=== PATIENT | male | born 1975 | race Caucasian/White ===

== ENCOUNTER 2023-05-09 19:48 | Emergency (ER) | payer SELFPAY ==
[~2023-05-09] VITALS: Ht 182.9 cm; Wt 75.0 kg
[2023-05-09 20:08] VITALS: BP 147/80; PULSE 82; RESP 16; O2SAT 98
[2023-05-09] MEDS ORDERED: ONDANSETRON ODT 4 MG TAB PO ONE (20:45)
[2023-05-09] MEDS ORDERED: HYDROcodone-ACET 10/325MG TAB PO ONE (20:45)
[2023-05-09 21:39] LABS: Basophils # (auto) 0 10 ^3/uL (0-0.2); Basophils % (auto) 0.5 % (0.0-2.0); Eosinophils # (auto) 0 10 ^3/uL (0-0.8); Eosinophils % (auto) 0.9 % (0.0-7.0); Hemoglobin 12.4 g/dL (13.5-17.5); Lymphocytes # (auto) 0.9 10 ^3/uL (0.4-5.4); Lymphocytes % (auto) 18.1 % (10.0-50.0); Mean Corpuscular Hemoglobin 29.4 pg (28.0-32.0); Mean Corpuscular Hgb Conc. 33.4 g/dL (32.0-36.0); Monocytes # (auto) 0.3 10 ^3/uL (0-1.3); Neutrophils # (auto) 3.6 10 ^3/uL (1.6-8.6); Neutrophils % (auto) 73.5 % (37.0-80.0); Nucleated Red Blood Cells % 0.2 %; Red Blood Cells 4.21 10^6/uL (4.5-5.90); Red Cell Distribution Width 14.2 % (11.8-14.3)
[2023-05-09 21:44] LABS: Alanine Aminotransferase 36 U/L (7-40); Albumin 3.9 g/dL (3.2-4.8); Alkaline Phosphatase 104 U/L (46-116); Anion Gap 7 (5-15); Aspartate Aminotransferase 25 U/L (13-40); BUN/Creatinine Ratio 7.6 (10.0-20.0); Blood Urea Nitrogen 6 mg/dL (9-23); Calcium 9.1 mg/dL (8.5-10.1); Carbon Dioxide 29 mmol/L (20-30); Chloride 101 mmol/L (98-107); Glucose 104 mg/dL (74-106); Potassium 3.8 mmol/L (3.5-5.1); Sodium 137 mmol/L (136-145)
[2023-05-09 21:45] LABS: Bilirubin, Total 0.4 mg/dL (0.2-1.0); Total Protein 7.8 g/dL (5.7-8.2)
[2023-05-09] MEDS ORDERED: ACE3T PO (22:27)
[2023-05-09] MEDS ORDERED: CLIN300C70 PO (22:27)
[2023-05-09] MEDS ORDERED: IBUP-1455 PO (22:27)
[2023-05-09] MEDS ORDERED: CLINDAMYCIN HCL 150 MG CAP PO ONE (22:30)
== END 2023-05-10 02:10 | disposition home or self-care (01) ==
LOC: ER 19:48
DX: K04.7 Periapical abscess without sinus (principal); T36.0X5A Adverse effect of penicillins, initial encounter; T36.1X5A Adverse effect of cephalosporins and other beta-lactam antibiotics, initial encounter; R51.9 Headache, unspecified; Y92.89 Other specified places as the place of occurrence of the external cause
CPT/HCPCS: 36415; 70486; 80053; 85025

== ENCOUNTER 2023-05-23 11:04 | Inpatient (IN) | payer MEDICAID, OTHER ==
[~2023-05-23] VITALS: Ht 182.9 cm; Wt 70.0 kg
[~2023-05-23 11:04] MED LIST: ACE3T PO; CLIN300C70 PO; IBUP-1455 PO
[2023-05-23 12:07] LABS: Basophils # (auto) 0 10 ^3/uL (0-0.2); Basophils % (auto) 0.7 % (0.0-2.0); Eosinophils # (auto) 0.1 10 ^3/uL (0-0.8); Eosinophils % (auto) 0.9 % (0.0-7.0); Hematocrit 41.9 % (41.0-53.0); Hemoglobin 13.9 g/dL (13.5-17.5); Lymphocytes # (auto) 0.8 10 ^3/uL (0.4-5.4); Mean Corpuscular Hemoglobin 28.6 pg (28.0-32.0); Mean Corpuscular Hgb Conc. 33.2 g/dL (32.0-36.0); Mean Corpuscular Volume 86.2 fL (80.0-100.0); Monocytes # (auto) 0.2 10 ^3/uL (0-1.3); Monocytes % (auto) 2.8 % (0.0-12.0); Neutrophils # (auto) 5.3 10 ^3/uL (1.6-8.6); Neutrophils % (auto) 82.6 % (37.0-80.0); Red Blood Cells 4.86 10^6/uL (4.5-5.90); Red Cell Distribution Width 14.3 % (11.8-14.3); White Blood Cell 6.4 10^3/uL (4.4-10.8)
[2023-05-23 12:24] LABS: Alanine Aminotransferase 65 U/L (7-40); Albumin 3.4 g/dL (3.2-4.8); Alkaline Phosphatase 327 U/L (46-116); Anion Gap 4 (5-15); Aspartate Aminotransferase 52 U/L (13-40); BUN/Creatinine Ratio 19.7 (10.0-20.0); Blood Urea Nitrogen 14 mg/dL (9-23); Calcium 8.7 mg/dL (8.7-10.4); Carbon Dioxide 25 mmol/L (20-30); Chloride 97 mmol/L (98-107); Glucose 113 mg/dL (74-106); Potassium 3.5 mmol/L (3.5-5.1); Sodium 126 mmol/L (136-145); Total Protein 7.5 g/dL (5.7-8.2)
[2023-05-23] MEDS ORDERED: cefTRIAXone 1GM/50ML D5W 50 ML IV ONE (12:45)
[2023-05-23] MEDS ORDERED: SULFAMETHOX W/TRIMETH(800/160MG) DS TAB PO ONE (12:45)
[2023-05-23] MEDS ORDERED: IOHEXOL 350 MG/ML 100ML IJ ONE (14:40)
[2023-05-23] MEDS ORDERED: HYDROcodone-ACET 5/325MG TAB PO ONE (14:45)
[2023-05-23 16:29] LABS: Erythrocyte Sedimentation Rate 35 mm/hr (0-20)
[2023-05-23 16:38] LABS: Lactic Acid w/Reflex 2.2 mmol/L (0.4-2.0)
[2023-05-23] MEDS ORDERED: NITROGLYCERIN 0.4 MG SL TAB SL PRN (16:45)
[2023-05-23] MEDS ORDERED: ACETAMINOPHEN 500 MG TAB PO PRN (16:45)
[2023-05-23] MEDS ORDERED: MORPHINE SULFATE INJ 2 MG/ml SYRG IV PRN ×2 (16:45)
[2023-05-23] MEDS ORDERED: BACTRIM 5MG/KG Q8HR PER RX 0 ML IV SCH (16:45)
[2023-05-23] MEDS ORDERED: DOCUSATE SOD 100 MG CAP PO PRN (16:45)
[2023-05-23 16:51] VITALS: PULSE 79; RESP 16; O2SAT 98
[2023-05-23] MEDS ORDERED: SODIUM CHLORIDE 0.9% 1,000 ML IV ONE (17:00)
[2023-05-23 18:14] VITALS: BP 128/86; PULSE 79; RESP 16; TEMP 98.2; O2SAT 96
[2023-05-23] MEDS: SULFAMETH-TRIMETH 80/16MG-ML 20 ML in D5W 5% 500 ML IV SCH (19:57)
[2023-05-23 21:25] VITALS: PULSE 69; RESP 16; O2SAT 99
[2023-05-23 21:34] LABS: Albumin 3.4 g/dL (3.2-4.8); Bilirubin, Direct 0.3 mg/dL (<0.3); Bilirubin, Total 0.7 mg/dL (0.2-1.0); Total Protein 7.1 g/dL (5.7-8.2)
[2023-05-23] MEDS: HYDROcodone-ACET 5/325MG TAB PO PRN (22:02)
[2023-05-23] MEDS: SODIUM CHLORIDE 0.9% 1,000 ML IV SCH (22:06)
[2023-05-23 22:24] LABS: COVID19 ANTIGEN SOFIA FIA NEGATIVE (NEGATIVE); Rapid Influenza A Negative (Negative); Rapid Influenza B Negative (Negative)
[2023-05-23] MEDS: ONDANSETRON HCL 4 MG/2 ML VIAL IV PRN (22:50)
[2023-05-24] MEDS: SULFAMETH-TRIMETH 80/16MG-ML 20 ML in D5W 5% 500 ML IV SCH ×3 (03:00→19:43)
[2023-05-24 04:51] VITALS: PULSE 70; RESP 18; O2SAT 96
[2023-05-24 05:42] VITALS: O2SAT 93
[2023-05-24 06:14] LABS: Basophils # (auto) 0 10 ^3/uL (0-0.2); Basophils % (auto) 0.6 % (0.0-2.0); Eosinophils # (auto) 0.1 10 ^3/uL (0-0.8); Eosinophils % (auto) 1.5 % (0.0-7.0); Hematocrit 37.6 % (41.0-53.0); Hemoglobin 12.6 g/dL (13.5-17.5); Mean Corpuscular Hemoglobin 28.8 pg (28.0-32.0); Mean Corpuscular Hgb Conc. 33.4 g/dL (32.0-36.0); Mean Corpuscular Volume 86.3 fL (80.0-100.0); Monocytes # (auto) 0.2 10 ^3/uL (0-1.3); Neutrophils # (auto) 5.4 10 ^3/uL (1.6-8.6); Neutrophils % (auto) 79.9 % (37.0-80.0); Nucleated Red Blood Cells % 0.4 %; Red Blood Cells 4.36 10^6/uL (4.5-5.90); White Blood Cell 6.8 10^3/uL (4.4-10.8)
[2023-05-24] MEDS: SODIUM CHLORIDE 0.9% 1,000 ML IV SCH ×2 (06:29→19:43)
[2023-05-24 07:02] LABS: Alanine Aminotransferase 52 U/L (7-40); Albumin 3.2 g/dL (3.2-4.8); Alkaline Phosphatase 284 U/L (46-116); Anion Gap 6 (5-15); Aspartate Aminotransferase 40 U/L (13-40); BUN/Creatinine Ratio 12.7 (10.0-20.0); Blood Urea Nitrogen 9 mg/dL (9-23); Calcium 8.9 mg/dL (8.5-10.1); Carbon Dioxide 23 mmol/L (20-30); Chloride 96 mmol/L (98-107); Glucose 90 mg/dL (74-106); Potassium 3.4 mmol/L (3.5-5.1); Sodium 125 mmol/L (136-145)
[2023-05-24 07:03] LABS: Bilirubin, Total 0.5 mg/dL (0.2-1.0); Total Protein 7.1 g/dL (5.7-8.2)
[2023-05-24 08:00] VITALS: PULSE 80; RESP 16; O2SAT 96
[2023-05-24] MEDS: HYDROcodone-ACET 5/325MG TAB PO PRN ×2 (09:44→18:46)
[2023-05-24] MEDS: PANTOPRAZOLE 40 MG TAB PO SCH (09:45)
[2023-05-24] MEDS: cefTRIAXone 1GM/50ML D5W 50 ML IV SCH (10:34)
[2023-05-24 12:36] LABS: Urine Amorphous Crystal FEW /hpf (None Seen); Urine Bacteria FEW /hpf (None Seen); Urine Blood Negative /uL (Negative); Urine Clarity Clear (Clear); Urine Color Yellow (Yellow); Urine Protein, UAD 1+ (Negative); Urine Specific Gravity 1.027 (1.001-1.035); Urine Urobilinogen Normal (Negative); Urine WBC 1 /hpf (0 - 3); Urine pH 6.5 (5.0-8.0)
[2023-05-24 12:40] LABS: Amphetamine Screen, Urine Pos (NEGATIVE); Barbiturate Scree,Urine Neg (NEGATIVE); Benzodiazephine Screen, Urine Neg (NEGATIVE); Cocaine Screen, Urine Neg (NEGATIVE)
[2023-05-24 12:41] LABS: Cannabinoid Screen, Urine Neg (NEGATIVE); Opiate Scree,Urine Neg (NEGATIVE); Phencyclidine Screen, Urine Neg (NEGATIVE)
[2023-05-24] MEDS: AZITHROMYCIN 500MG/ 250ML 250 ML IV SCH (12:47)
[2023-05-24] MEDS: ONDANSETRON HCL 4 MG/2 ML VIAL IV PRN (12:59)
[2023-05-24] MEDS ORDERED: POTASSIUM EFFERVESENT TAB 25 MEQ PO ONE (14:30)
[2023-05-24 16:30] VITALS: BP 128/82; PULSE 64; RESP 18; O2SAT 94
[2023-05-24 20:00] VITALS: PULSE 68
[2023-05-24 22:05] VITALS: BP 124/85; PULSE 70; RESP 17; TEMP 99.1; O2SAT 93
[2023-05-25] VITALS (9 sets, daily range): BP systolic 131–156; BP diastolic 75–96; PULSE 62–71; RESP 17–18; TEMP 97.2–98.9; O2SAT 90–96
[2023-05-25] MEDS: SULFAMETH-TRIMETH 80/16MG-ML 20 ML in D5W 5% 500 ML IV SCH ×3 (03:23→21:36)
[2023-05-25] MEDS: HYDROcodone-ACET 5/325MG TAB PO PRN ×2 (04:32→16:48)
[2023-05-25 07:12] LABS: Basophils # (auto) 0 10 ^3/uL (0-0.2); Basophils % (auto) 0.6 % (0.0-2.0); Eosinophils # (auto) 0.1 10 ^3/uL (0-0.8); Hematocrit 35.4 % (41.0-53.0); Hemoglobin 11.8 g/dL (13.5-17.5); Lymphocytes # (auto) 1.1 10 ^3/uL (0.4-5.4); Lymphocytes % (auto) 13.8 % (10.0-50.0); Mean Corpuscular Hemoglobin 28.6 pg (28.0-32.0); Mean Corpuscular Hgb Conc. 33.4 g/dL (32.0-36.0); Mean Corpuscular Volume 85.6 fL (80.0-100.0); Monocytes # (auto) 0.3 10 ^3/uL (0-1.3); Monocytes % (auto) 3.4 % (0.0-12.0); Neutrophils # (auto) 6.2 10 ^3/uL (1.6-8.6); Neutrophils % (auto) 81.2 % (37.0-80.0); Nucleated Red Blood Cells % 0.1 %; Red Blood Cells 4.13 10^6/uL (4.5-5.90); Red Cell Distribution Width 14.2 % (11.8-14.3); White Blood Cell 7.7 10^3/uL (4.4-10.8)
[2023-05-25 07:14] LABS: Chloride 93 mmol/L (98-107); Potassium 3.9 mmol/L (3.5-5.1)
[2023-05-25 07:15] LABS: Anion Gap 3 (5-15); Carbon Dioxide 23 mmol/L (20-30)
[2023-05-25 07:20] LABS: BUN/Creatinine Ratio 11.3 (10.0-20.0); Blood Urea Nitrogen 8 mg/dL (9-23); Glucose 89 mg/dL (74-106)
[2023-05-25 07:30] LABS: Sodium 119 mmol/L (136-145)
[2023-05-25] MEDS: cefTRIAXone 1GM/50ML D5W 50 ML IV SCH (09:22)
[2023-05-25] MEDS: PANTOPRAZOLE 40 MG TAB PO SCH (09:23)
[2023-05-25] MEDS: AZITHROMYCIN 500MG/ 250ML 250 ML IV SCH (09:23)
[2023-05-25] MEDS: SODIUM CHLORIDE 1 GM TAB PO SCH ×2 (10:00→21:35)
[2023-05-25 15:07] LABS: Chlamydia Trachomatis, NAA Negative (Negative); Neisseria gonorrhoeae, NAA Negative (Negative)
[2023-05-25] MEDS: TEMAZEPAM 15 MG CAP PO PRN (21:35)
[2023-05-26] VITALS (19 sets, daily range): BP systolic 121–143; BP diastolic 58–95; PULSE 64–88; RESP 15–23; TEMP 97.7–100.3; O2SAT 84–98
[2023-05-26] MEDS: SULFAMETH-TRIMETH 80/16MG-ML 20 ML in D5W 5% 500 ML IV SCH ×2 (05:49→17:08)
[2023-05-26 06:08] LABS: Calcium 8.4 mg/dL (8.7-10.4); Chloride 93 mmol/L (98-107); Potassium 4.4 mmol/L (3.5-5.1)
[2023-05-26 06:09] LABS: Anion Gap 2 (5-15); Carbon Dioxide 18 mmol/L (20-30)
[2023-05-26 06:15] LABS: BUN/Creatinine Ratio 10.5 (10.0-20.0); Blood Urea Nitrogen 9 mg/dL (9-23); Glucose 85 mg/dL (74-106)
[2023-05-26 07:01] LABS: Basophils # (auto) 0 10 ^3/uL (0-0.2); Basophils % (auto) 0.5 % (0.0-2.0); Eosinophils # (auto) 0 10 ^3/uL (0-0.8); Eosinophils % (auto) 0.5 % (0.0-7.0); Hematocrit 36.2 % (41.0-53.0); Hemoglobin 12.3 g/dL (13.5-17.5); Lymphocytes # (auto) 1.2 10 ^3/uL (0.4-5.4); Lymphocytes % (auto) 12.6 % (10.0-50.0); Mean Corpuscular Hemoglobin 28.9 pg (28.0-32.0); Mean Corpuscular Volume 85.1 fL (80.0-100.0); Monocytes # (auto) 0.2 10 ^3/uL (0-1.3); Monocytes % (auto) 2.7 % (0.0-12.0); Neutrophils # (auto) 7.7 10 ^3/uL (1.6-8.6); Neutrophils % (auto) 83.7 % (37.0-80.0); Nucleated Red Blood Cells % 0.1 %; Red Blood Cells 4.26 10^6/uL (4.5-5.90); White Blood Cell 9.2 10^3/uL (4.4-10.8)
[2023-05-26 07:22] LABS: Sodium 113 mmol/L (136-145)
[2023-05-26] MEDS ORDERED: SODIUM CHL 3% HYPERTONIC 500 ML BAG IN ONE (09:15)
[2023-05-26] MEDS ORDERED: SODIUM CHL 3% 500 ML IV ONE ×2 (09:15→21:00)
[2023-05-26] MEDS: PANTOPRAZOLE 40 MG TAB PO SCH (10:00)
[2023-05-26] MEDS: SODIUM CHLORIDE 1 GM TAB PO SCH ×2 (10:00→21:18)
[2023-05-26] MEDS ORDERED: FUROSEMIDE 20 MG/2 ML VIAL IV SCH (10:00)
[2023-05-26 10:11] LABS: Lactate Dehydrogenase 243 U/L (120-246)
[2023-05-26] MEDS ORDERED: predniSONE 20 MG TAB PO SCH (10:46)
[2023-05-26] MEDS: AZITHROMYCIN 500MG/ 250ML 250 ML IV SCH (10:58)
[2023-05-26] MEDS: cefTRIAXone 1GM/50ML D5W 50 ML IV SCH (10:58)
[2023-05-26 13:00] LABS: Base Excess -0.7 mmol/L (-2.0-2.0)
[2023-05-26] MEDS: MICAFUNGIN SODIUM 100 MG in SODIUM CHL 0.9% 100 ML IV SCH (15:35)
[2023-05-26] MEDS: TEMAZEPAM 15 MG CAP PO PRN (21:17)
[2023-05-27] VITALS (21 sets, daily range): BP systolic 111–148; BP diastolic 65–92; PULSE 79–94; RESP 14–22; TEMP 96.7–97.8; O2SAT 91–99
[2023-05-27] MEDS: methylPREDNISolone SOD SUCC 40 MG/ML VL IV SCH ×5 (00:47→23:09)
[2023-05-27] MEDS: SULFAMETHOX W/TRIMETH(800/160MG) DS TAB PO SCH ×3 (00:49→14:18)
[2023-05-27] MEDS: HYDROcodone-ACET 5/325MG TAB PO PRN (05:52)
[2023-05-27 06:13] LABS: Carbon Dioxide 23 mmol/L (20-30); Chloride 88 mmol/L (98-107)
[2023-05-27 06:17] LABS: Hematocrit 37.8 % (41.0-53.0); Hemoglobin 12.4 g/dL (13.5-17.5); Mean Corpuscular Hemoglobin 28.6 pg (28.0-32.0); Mean Corpuscular Hgb Conc. 32.9 g/dL (32.0-36.0); Red Blood Cells 4.34 10^6/uL (4.5-5.90); Red Cell Distribution Width 14.5 % (11.8-14.3); White Blood Cell 11.3 10^3/uL (4.4-10.8)
[2023-05-27 06:19] LABS: BUN/Creatinine Ratio 14.9 (10.0-20.0); Blood Urea Nitrogen 13 mg/dL (9-23); Glucose 102 mg/dL (74-106)
[2023-05-27 06:37] LABS: Calcium 8.5 mg/dL (8.7-10.4)
[2023-05-27 07:01] LABS: Basophils % (manual) 0 (0.0-2.0); Blast Cells 0; Eosinophils % (manual) 0 (0-7); Metamyelocytes % 0; Myelocytes % 0; Promyelocytes % 0; Reactive Lymphocytes 0
[2023-05-27 07:20] LABS: Anion Gap -4 (5-15)
[2023-05-27 07:21] LABS: Sodium 107 mmol/L (136-145)
[2023-05-27] MEDS ORDERED: SODIUM CHL 3% 500 ML IV ONE ×2 (07:45→23:00)
[2023-05-27 07:46] LABS: Band Neutrophils % (manual) 2; Lymphocytes % (manual) 10 (10.0-50.0); Monocytes % (manual) 2 (0-12)
[2023-05-27 07:47] LABS: Anisocytosis Slight; Platelet Estimate Decreased
[2023-05-27] MEDS ORDERED: FUROSEMIDE 40 MG/4 ML VIAL IV ONE (08:00)
[2023-05-27] MEDS: cefTRIAXone 1GM/50ML D5W 50 ML IV SCH (08:17)
[2023-05-27] MEDS: MICAFUNGIN SODIUM 100 MG in SODIUM CHL 0.9% 100 ML IV SCH ×2 (08:51→10:59)
[2023-05-27] MEDS: FUROSEMIDE 40 MG/4 ML VIAL IV SCH (08:52)
[2023-05-27] MEDS: SODIUM CHLORIDE 1 GM TAB PO SCH ×2 (09:17→21:26)
[2023-05-27] MEDS: UREA 15gm PO Powder PKG PO SCH ×2 (09:18→21:26)
[2023-05-27] MEDS: PANTOPRAZOLE 40 MG TAB PO SCH (09:18)
[2023-05-27] MEDS ORDERED: VANCOMYCIN PER PHARMACY 0 MG IV SCH (10:45)
[2023-05-27] MEDS ORDERED: SODIUM CHLORIDE 0.9% 1,000 ML IV SCH (11:00)
[2023-05-27] MEDS ORDERED: VANCOMYCIN 1GM/200ML 200 ML IV ONE (12:00)
[2023-05-27] MEDS: CLINDAMYCIN 900MG IV 50 ML IV SCH ×2 (13:07→21:50)
[2023-05-27] MEDS: MEROPENEM 1GM IVPB 100 ML IV SCH ×2 (14:13→21:26)
[2023-05-27] MEDS: VANCOMYCIN 1GM/200ML 200 ML IV SCH (20:39)
[2023-05-27] MEDS ORDERED: SODIUM CHL 3% 500 ML IV SCH (22:00)
[2023-05-27] MEDS: TEMAZEPAM 15 MG CAP PO PRN (23:00)
[2023-05-28] VITALS (31 sets, daily range): BP systolic 108–158; BP diastolic 44–91; PULSE 68–122; RESP 10–28; TEMP 96.7–98.4; O2SAT 88–99
[2023-05-28] MEDS: HYDROcodone-ACET 5/325MG TAB PO PRN (01:35)
[2023-05-28] MEDS: VANCOMYCIN 1GM/200ML 200 ML IV SCH ×2 (03:50→13:10)
[2023-05-28] MEDS: CLINDAMYCIN 900MG IV 50 ML IV SCH ×2 (03:56→16:41)
[2023-05-28] MEDS: MEROPENEM 1GM IVPB 100 ML IV SCH ×3 (05:08→22:50)
[2023-05-28] MEDS: methylPREDNISolone SOD SUCC 40 MG/ML VL IV SCH ×3 (05:08→19:44)
[2023-05-28] MEDS ORDERED: SODIUM CHLORIDE 1 GM TAB PO SCH (06:00)
[2023-05-28 06:20] LABS: Carbon Dioxide 21 mmol/L (20-30); Chloride 97 mmol/L (98-107); Potassium 4.2 mmol/L (3.5-5.1)
[2023-05-28 06:22] LABS: Calcium 8.7 mg/dL (8.7-10.4)
[2023-05-28 06:26] LABS: Glucose 115 mg/dL (74-106)
[2023-05-28 07:28] LABS: Anion Gap -9 (5-15); Blood Urea Nitrogen 40 mg/dL (9-23); Sodium 109 mmol/L (136-145)
[2023-05-28 07:45] LABS: Basophils # (auto) 0 10 ^3/uL (0-0.2); Basophils % (auto) 0.3 % (0.0-2.0); Eosinophils # (auto) 0 10 ^3/uL (0-0.8); Eosinophils % (auto) 0.1 % (0.0-7.0); Hematocrit 35.7 % (41.0-53.0); Hemoglobin 11.3 g/dL (13.5-17.5); Lymphocytes # (auto) 1.4 10 ^3/uL (0.4-5.4); Lymphocytes % (auto) 9.2 % (10.0-50.0); Mean Corpuscular Hemoglobin 28.7 pg (28.0-32.0); Mean Corpuscular Hgb Conc. 31.7 g/dL (32.0-36.0); Mean Corpuscular Volume 90.3 fL (80.0-100.0); Monocytes # (auto) 0.5 10 ^3/uL (0-1.3); Monocytes % (auto) 3.2 % (0.0-12.0); Neutrophils # (auto) 13.5 10 ^3/uL (1.6-8.6); Neutrophils % (auto) 87.2 % (37.0-80.0); Red Blood Cells 3.95 10^6/uL (4.5-5.90); Red Cell Distribution Width 15.4 % (11.8-14.3)
[2023-05-28 07:46] LABS: White Blood Cell 14.9 10^3/uL (4.4-10.8)
[2023-05-28 08:57] LABS: INR 1.08 (0.9-1.15); Partial Thromboplastin Time 28.8 SEC (24.5-34.5); Prothrombin Time 11.5 sec (9.3-11.8)
[2023-05-28] MEDS: PRIMAQUINE PO SCH (10:00)
[2023-05-28 10:16] LABS: Hepatitis B Surface Antibody Negative (Negative)
[2023-05-28 10:27] LABS: Hepatitis B Surface Antigen Negative (Negative)
[2023-05-28] MEDS: FUROSEMIDE 40 MG/4 ML VIAL IV SCH (10:28)
[2023-05-28] MEDS: UREA 15gm PO Powder PKG PO SCH ×2 (10:28→22:48)
[2023-05-28] MEDS: PANTOPRAZOLE 40 MG TAB PO SCH (10:28)
[2023-05-28] MEDS: MICAFUNGIN SODIUM 100 MG in SODIUM CHL 0.9% 100 ML IV SCH (10:29)
[2023-05-28 10:47] LABS: Hepatitis A Ab IgM Negative
[2023-05-28 10:48] LABS: Hepatitis B Core IgM Negative
[2023-05-28 10:49] LABS: Hepatitis C Antibody Negative (Negative)
[2023-05-28] MEDS ORDERED: LIDOCAINE 1% (LOCAL ANESTH.) PF 5ml SDV ID ONE (11:30)
[2023-05-28] MEDS ORDERED: SODIUM CHL 3% 500 ML IV ONE (14:30)
[2023-05-28] MEDS ORDERED: SODIUM CHL 3% 500 ML IV SCH ×2 (14:30→21:00)
[2023-05-28] MEDS ORDERED: FUROSEMIDE 40 MG/4 ML VIAL IV ONE (15:15)
[2023-05-28] MEDS ORDERED: FUROSEMIDE 100 MG/10ML VIAL IV SCH (22:00)
[2023-05-28] MEDS: SODIUM CHLOR 0.9% PF (SALINE LOCK) 10ML VIAL/SYR IV SCH (22:44)
[2023-05-29] VITALS (89 sets, daily range): BP systolic 40–223; BP diastolic 4–117; PULSE 32–168; RESP 12–113; TEMP 97.6–100.2; O2SAT 39–100
[2023-05-29] MEDS: methylPREDNISolone SOD SUCC 40 MG/ML VL IV SCH ×4 (01:09→18:00)
[2023-05-29] MEDS: TEMAZEPAM 15 MG CAP PO PRN (01:09)
[2023-05-29] MEDS: CLINDAMYCIN 900MG IV 50 ML IV SCH ×3 (01:13→17:00)
[2023-05-29] MEDS: IPRATROPIUM BROM 0.5 MG/2.5ML INH SOL NEB PRN ×3 (01:27→07:15)
[2023-05-29] MEDS: ALBUTEROL SULF 2.5 MG/0.5ML(0.5%) NEB SOLN NEB PRN ×3 (01:27→07:15)
[2023-05-29] MEDS: VANCOMYCIN 1GM/200ML 200 ML IV SCH ×2 (02:21→13:00)
[2023-05-29 04:32] LABS: Chloride 91 mmol/L (98-107); Potassium 3.9 mmol/L (3.5-5.1)
[2023-05-29 04:33] LABS: Calcium 9.4 mg/dL (8.7-10.4); Carbon Dioxide 22 mmol/L (20-30)
[2023-05-29 04:38] LABS: BUN/Creatinine Ratio 67.3 (10.0-20.0); Glucose 108 mg/dL (74-106)
[2023-05-29 05:09] LABS: Blood Urea Nitrogen 72 mg/dL (9-23); Sodium 103 mmol/L (136-145)
[2023-05-29] MEDS: MEROPENEM 1GM IVPB 100 ML IV SCH ×2 (06:31→14:00)
[2023-05-29] MEDS: SODIUM CHL 3% 500 ML IV SCH ×2 (08:53→16:20)
[2023-05-29] MEDS: MICAFUNGIN SODIUM 100 MG in SODIUM CHL 0.9% 100 ML IV SCH (09:17)
[2023-05-29] MEDS: PANTOPRAZOLE 40 MG TAB PO SCH (09:18)
[2023-05-29] MEDS: SODIUM CHLOR 0.9% PF (SALINE LOCK) 10ML VIAL/SYR IV SCH (09:18)
[2023-05-29] MEDS: PRIMAQUINE PO SCH (09:18)
[2023-05-29] MEDS: UREA 15gm PO Powder PKG PO SCH (09:18)
[2023-05-29] MEDS ORDERED: ETOMIDATE (2MG/ML) 20ML VIAL IV ONE ×2 (10:10→10:15)
[2023-05-29] MEDS ORDERED: ROCURONIUM 10MG/ML 10ML VIAL IV ONE ×2 (10:11→10:15)
[2023-05-29] MEDS ORDERED: FUROSEMIDE INJECTION 100 MG in SODIUM CHL 0.9% 100 ML IV SCH (10:15)
[2023-05-29] MEDS ORDERED: NOREPINEPHRINE 8 MG/250ML KIT 250 ML IV SCH (10:19)
[2023-05-29] MEDS ORDERED: fentaNYL Drip 2500mCg/250mlNS 250 ML IV ONE (10:19)
[2023-05-29] MEDS ORDERED: fentaNYL Drip 2500mCg/250mlNS 250 ML IV SCH (10:19)
[2023-05-29] MEDS ORDERED: NOREPINEPHRINE 8 MG/250ML KIT 250 ML IV ONE (10:19)
[2023-05-29] MEDS ORDERED: MIDAZOLAM DRIP 50 mg/50mL 50 ML IV ONE (10:19)
[2023-05-29] MEDS ORDERED: MIDAZOLAM DRIP 50 mg/50mL 50 ML IV SCH (10:19)
[2023-05-29] MEDS ORDERED: AMIODARONE BOLUS KIT 100 ML IV ONE (11:15)
[2023-05-29] MEDS ORDERED: AMIODARONE 450mg/250ml AE 250 ML IV ONE (11:15)
[2023-05-29] MEDS ORDERED: AMIODARONE HCL (50 MG/ ML) 3 ML VIAL IV ONE (11:18)
[2023-05-29] MEDS ORDERED: AMIODARONE 450mg/250ml AE 250 ML IV SCH ×2 (11:30→17:30)
[2023-05-29] MEDS ORDERED: ADENOSINE 6 MG/2 ML INJ IV ONE ×3 (11:30)
[2023-05-29] MEDS ORDERED: HYDROCORTISONE SOD SUCC 100 MG/2ML INJ VIAL IV ONE (12:45)
[2023-05-29] MEDS ORDERED: PHENYLEPHRINE IV 250 ML IV SCH ×2 (12:45→15:39)
[2023-05-29] MEDS ORDERED: VASOPRESSIN 20 UNITS in SODIUM CHL 0.9% 99 ML IV SCH (12:45)
[2023-05-29 12:57] LABS: Base Excess -16.3 mmol/L (-2.0-2.0)
[2023-05-29] MEDS ORDERED: SODIUM BICARBONATE 8.4 % INJ 50ML VIAL IV ONE ×3 (13:14→15:40)
[2023-05-29] MEDS ORDERED: SODIUM BICARBONATE 50ML VIAL 150 ML in D5W 5% 1,000 ML IV ONE (14:00)
[2023-05-29 14:06] LABS: Aspergillus flavus Negative (Neg:<1:1); Aspergillus fumigatus Negative (Neg:<1:1); Aspergillus niger Negative (Neg:<1:1); RPR Quant 1:16 titer (NonRea<1:1)
[2023-05-29] MEDS ORDERED: ENOXAPARIN SOD 80 MG/0.8ML SYRINGE SC SCH (14:24)
[2023-05-29 14:46] LABS: Base Excess -3.2 mmol/L (-2.0-2.0)
[2023-05-29] MEDS ORDERED: DOPamine 1600MCG/ML D5W 250 ML IV SCH ×2 (15:39→16:15)
[2023-05-29] MEDS ORDERED: EPINEPHrine HCL 250 ML IV SCH (15:39)
[2023-05-29] MEDS ORDERED: EPINEPHrine HCL 250 ML IV ONE (15:49)
[2023-05-29 16:03] LABS: Hemoglobin 10.7 g/dL (13.5-17.5)
[2023-05-29 16:05] LABS: Hematocrit 36.2 % (41.0-53.0); Mean Corpuscular Hemoglobin 28.3 pg (28.0-32.0); Mean Corpuscular Hgb Conc. 29.5 g/dL (32.0-36.0); Mean Corpuscular Volume 96.1 fL (80.0-100.0); Red Blood Cells 3.77 10^6/uL (4.5-5.90)
[2023-05-29] MEDS ORDERED: VASOPRESSIN 20 UNIT/ML ONE (16:05)
[2023-05-29 16:30] LABS: White Blood Cell 30.4 10^3/uL (4.4-10.8)
[2023-05-29 16:31] LABS: Basophils % (manual) 0 (0.0-2.0); Blast Cells 0; Eosinophils % (manual) 0 (0-7); Metamyelocytes % 0; Myelocytes % 0; Promyelocytes % 0; Reactive Lymphocytes 0
[2023-05-29 16:57] LABS: Alanine Aminotransferase 887 U/L (7-40); Albumin 2.3 g/dL (3.2-4.8); Alkaline Phosphatase 212 U/L (46-116); BUN/Creatinine Ratio 43.8 (10.0-20.0); Glucose 190 mg/dL (74-106)
[2023-05-29 16:58] LABS: Bilirubin, Total 0.5 mg/dL (0.2-1.0)
[2023-05-29 17:06] LABS: Base Excess -22.4 mmol/L (-2.0-2.0)
[2023-05-29 17:08] LABS: Aspartate Aminotransferase 1682 U/L (13-40)
[2023-05-29 17:16] LABS: Band Neutrophils % (manual) 3; Lymphocytes % (manual) 20 (10.0-50.0); Monocytes % (manual) 6 (0-12); Platelet Estimate Adequate
[2023-05-29 17:22] LABS: Potassium 6.4 mmol/L (3.5-5.1); Sodium 128 mmol/L (136-145)
[2023-05-29 17:23] LABS: Blood Urea Nitrogen 85 mg/dL (9-23); Calcium 15.6 mg/dL (8.5-10.1); Carbon Dioxide 21 mmol/L (20-30); Chloride 106 mmol/L (98-107)
[2023-05-29 17:24] LABS: Anion Gap 1 (5-15)
[2023-05-29] MEDS ORDERED: SODIUM BICARBONATE 8.4% INJ 50ML SYRINGE IV ONE ×2 (18:11)
[2023-05-29] MEDS ORDERED: ATROPINE SULF 1 MG/10ml SYR IM ONE (18:11)
[2023-05-29] MEDS ORDERED: DOPamine 1600mCg/ml 400MG/250ml NSorD5 KIT/BAG IV ONE (18:11)
[2023-05-29] MEDS ORDERED: HYDROCORTISONE SOD SUCC 100 MG/2ML INJ VIAL IV SCH (22:00)
[2023-05-29] MEDS ORDERED: ATROPINE SULF 1 MG/10ml SYR IV ONE (22:42)
[2023-05-29] MEDS ORDERED: CALCIUM CHLOR(10%) 100MG/ML 10ML SYRINGE IV ONE (22:43)
[2023-05-29] MEDS ORDERED: LIDOCAINE 4MG/ML IV SOLN 500ML BAG IV ONE (22:44)
== END 2023-05-29 18:12 | DRG 890 ==
LOC: ER 11:04 → TELE 16:39 → TELE-WESTW 05-24 13:33 → DOU IN ICU 05-26 11:10
PROVIDERS: ADMIT Nurse Practitioner Acute Care; ATTEND Nurse Practitioner Acute Care
PROC: 5A0935A Assistance with Respiratory Ventilation, Less than 24 Consecutive Hours, High Flow/Velocity Cannula (ICD-10-PCS; 2023-05-28)
PROC: 02HV33Z Insertion of Infusion Device into Superior Vena Cava, Percutaneous Approach (ICD-10-PCS; 2023-05-28)
PROC: B548ZZA Ultrasonography of Superior Vena Cava, Guidance (ICD-10-PCS; 2023-05-28)
PROC: 04HY32Z Insertion of Monitoring Device into Lower Artery, Percutaneous Approach (ICD-10-PCS; principal; 2023-05-29)
PROC: 5A1945Z Respiratory Ventilation, 24-96 Consecutive Hours (ICD-10-PCS; 2023-05-29)
PROC: 0BH17EZ Insertion of Endotracheal Airway into Trachea, Via Natural or Artificial Opening (ICD-10-PCS; 2023-05-29)
PROC: 5A12012 Performance of Cardiac Output, Single, Manual (ICD-10-PCS; 2023-05-29)
DX: B20 Human immunodeficiency virus [HIV] disease (principal); J96.01 Acute respiratory failure with hypoxia; A41.9 Sepsis, unspecified organism; I46.9 Cardiac arrest, cause unspecified; E22.2 Syndrome of inappropriate secretion of antidiuretic hormone; B59 Pneumocystosis; R64 Cachexia; I47.10 Supraventricular tachycardia, unspecified; K04.7 Periapical abscess without sinus; F19.90 Other psychoactive substance use, unspecified, uncomplicated; Z87.891 Personal history of nicotine dependence; Z68.21 Body mass index [BMI] 21.0-21.9, adult
CPT/HCPCS: 36415; 36569; 36600; 70460; 70491; 71045; 71046; 71275; 80048; 80053; 80074; 80076; 80202; 80307; 81001; 82805; 82962; 83605; 83615; 83930; 83935; 84295; 84300; 84443; 84550; 85007; 85025; 85027; 85379; 85610; 85652; 85730; 86141; 86360; 86592; 86606; 86635; 86641; 86706; 87070; 87081; 87205; 87426; 87804; 92950; 93005; 93306; 93970; 94002; 94640; 96365; 99291; G0378; J0171; J2185; J2248; J2250; J2405; J3490